=== PATIENT | male | born 1990 | race Asian ===

== ENCOUNTER 2020-06-16 23:07 | Emergency (ER) | payer OTHER ==
[~2020-06-16] VITALS: Ht 185.4 cm; Wt 99.8 kg
[2020-06-17 01:20] VITALS: BP 142/88; TEMP 98.6
== END 2020-06-17 01:20 | disposition home or self-care (01) ==
LOC: ED 23:07
DX: S90.31XA Contusion of right foot, initial encounter (principal); M79.671 Pain in right foot; W20.8XXA Other cause of strike by thrown, projected or falling object, initial encounter; Y92.89 Other specified places as the place of occurrence of the external cause
CPT/HCPCS: 99283

== ENCOUNTER 2020-06-29 18:25 | Emergency (ER) | payer OTHER ==
[~2020-06-29] VITALS: Ht 185.4 cm; Wt 99.8 kg
[2020-06-29 18:28] VITALS: TEMP 97.8
[2020-06-29 19:08] LABS: POTASSIUM 3.4 mmol/L (3.6-5.2); SODIUM 143 mmol/L (136-145)
[2020-06-29 19:09] LABS: PLATELET COUNT 416 K/uL (142-355)
[2020-06-30 07:16] VITALS: BP 127/92
== END 2020-06-30 07:16 | disposition still patient (30) ==
LOC: ED 18:25
PROVIDERS: Family Medicine
DX: R56.9 Unspecified convulsions (principal); F10.129 Alcohol abuse with intoxication, unspecified; Y90.8 Blood alcohol level of 240 mg/100 ml or more; R79.89 Other specified abnormal findings of blood chemistry; Z03.818 Encounter for observation for suspected exposure to other biological agents ruled out
CPT/HCPCS: 36415; 80053; 80307; 80320; 81000; 84484; 85007; 85027; 85379; 87635; 93005; 96360; 99284; Q9963; U0003

== ENCOUNTER 2021-04-01 12:29 | Emergency (ER) | payer OTHER ==
[~2021-04-01] VITALS: Ht 185.4 cm; Wt 104.3 kg
[2021-04-01 12:35] VITALS: TEMP 99.6
[2021-04-01 13:04] LABS: PLATELET COUNT 90 K/uL (142-355)
[2021-04-01 13:14] LABS: POTASSIUM 3.4 mmol/L (3.6-5.2); SODIUM 139 mmol/L (136-145)
[2021-04-01 13:24] LABS: PARTIAL THROMBOPLASTIN TIME 24.5 SECONDS (24.5-33.6)
[2021-04-01 15:36] VITALS: BP 142/97
== END 2021-04-01 15:40 | disposition home or self-care (01) ==
LOC: ED 12:29
PROVIDERS: Hospitalist
DX: R42 Dizziness and giddiness (principal); E87.6 Hypokalemia; E83.42 Hypomagnesemia; R55 Syncope and collapse
CPT/HCPCS: 36415; 80053; 80320; 82550; 83735; 83880; 84484; 85027; 85379; 85610; 85730; 93005; 96360; 96365; 96375; 99284; J3475; Q9963

== ENCOUNTER 2021-05-19 22:27 | Observation (INO) | payer OTHER ==
[~2021-05-19] VITALS: Ht 185.4 cm; Wt 103.0 kg
[2021-05-19 22:35] VITALS: BP 144/105; TEMP 98.9
[2021-05-19 23:26] LABS: PLATELET COUNT 23 K/uL (142-355)
[2021-05-19 23:29] LABS: POTASSIUM 3.4 mmol/L (3.6-5.2)
[2021-05-20] VITALS (7 sets, daily range): BP systolic 131–144; BP diastolic 90–99; TEMP 97.8–98.8; Ht 185.4 cm; Wt 103.0 kg
[2021-05-20 01:29] LABS: PARTIAL THROMBOPLASTIN TIME 25.7 SECONDS (24.5-33.6)
[2021-05-20] MEDS ORDERED: ABILIFY MYCITE15 MG PO (02:16)
[2021-05-20] MEDS ORDERED: TRAZODONE HYDRO50 MG PO (02:17)
[2021-05-20] MEDS ORDERED: CETI10TA PO (02:20)
[2021-05-20] MEDS ORDERED: CRESTOR5 MG PO (02:21)
--- NOTE | 2021-05-20 16:03 | NUR ---
IV D/C INTACT. PRESSURE APPLIED X 5 MIN. D/C INSTRUCTIONS GIVEN. PT VERBALIZED UNDERSTANDING. PT AMBULATED DOWN [facility] ACCOMPANIED BY NURSING STAFF AND EXITIED FACILITY IN NO DISTRESS
== END 2021-05-20 15:58 | disposition home or self-care (01) ==
LOC: ED 22:27 → MED/SURG 05-20 00:40
PROVIDERS: ADMIT Emergency Medicine; ATTEND Internal Medicine Endocrinology, Diabetes & Metabolism
DX: D69.6 Thrombocytopenia, unspecified (principal); B20 Human immunodeficiency virus [HIV] disease; R11.2 Nausea with vomiting, unspecified; F41.8 Other specified anxiety disorders; E78.49 Other hyperlipidemia; D72.818 Other decreased white blood cell count
CPT/HCPCS: 36415; 80048; 82272; 84484; 85008; 85027; 85610; 85730; 86900; 86901; 87635; 93005; 96374; 99220; 99284; G0378; J3490; P9035; U0003

== ENCOUNTER 2021-12-28 11:25 | Emergency (ER) | payer OTHER ==
[~2021-12-28] VITALS: Ht 185.4 cm; Wt 103.0 kg
[~2021-12-28 11:25] MED LIST: ABILIFY MYCITE15 MG PO; CETI10TA PO; CRESTOR5 MG PO; TRAZODONE HYDRO50 MG PO
[2021-12-28 11:31] VITALS: TEMP 98.4
[2021-12-28 12:17] LABS: PLATELET COUNT 190 K/uL (142-355)
[2021-12-28 12:24] LABS: POTASSIUM 3.2 mmol/L (3.6-5.2)
[2021-12-28 13:43] VITALS: BP 148/98
== END 2021-12-28 13:43 | disposition home or self-care (01) ==
LOC: ED 11:25
PROVIDERS: Emergency Medicine Emergency Medical Services
DX: K80.20 Calculus of gallbladder without cholecystitis without obstruction (principal)
CPT/HCPCS: 80053; 81002; 82150; 83690; 84484; 85027; 93005; 96360; 96374; 96375; 99284; J1885; J2270; J2405; J3490

== ENCOUNTER 2022-04-14 20:56 | Emergency (ER) | payer OTHER ==
[~2022-04-14] VITALS: Ht 185.4 cm; Wt 127.0 kg
[2022-04-14 21:05] VITALS: TEMP 98.7
[2022-04-14 21:58] LABS: PLATELET COUNT 265 K/uL (142-355)
[2022-04-14 22:07] LABS: POTASSIUM 3.9 mmol/L (3.6-5.2)
[2022-04-15 01:53] VITALS: BP 127/87
== END 2022-04-15 01:53 | disposition home or self-care (01) ==
LOC: ED 20:56
PROVIDERS: Family Medicine
DX: K29.00 Acute gastritis without bleeding (principal); I16.0 Hypertensive urgency; E86.0 Dehydration; Z79.899 Other long term (current) drug therapy; Z51.81 Encounter for therapeutic drug level monitoring
CPT/HCPCS: 36415; 80053; 80307; 81002; 82150; 82550; 83690; 84484; 85027; 93005; 96360; 96374; 99284; J2405

== ENCOUNTER 2022-08-25 21:28 | Emergency (ER) | payer OTHER ==
[~2022-08-25] VITALS: Ht 185.4 cm; Wt 127.0 kg
[2022-08-25 21:34] VITALS: BP 150/95; TEMP 98.6
== END 2022-08-25 22:22 | disposition home or self-care (01) ==
LOC: ED 21:28
DX: L03.011 Cellulitis of right finger (principal)
CPT/HCPCS: 99282